=== PATIENT | male | born 1965 | race Caucasian/White ===

== ENCOUNTER 2017-04-13 20:44 | Emergency (ER) | payer SELFPAY ==
--- NOTE | 2017-04-13 20:53 | NUR ---
PT CHRISTY AND ONCE IN BED PT REFUSED ANY MEDICAL TREATMENT AND WALKED OUT THE ER WITH A STEADY GAIT
== END 2017-04-13 20:59 | disposition left against medical advice (07) ==
LOC: ER 20:46
DX: Z53.21 Procedure and treatment not carried out due to patient leaving prior to being seen by health care provider (principal)